=== PATIENT | female | born 1985 | race Caucasian/White ===

== ENCOUNTER → 2017-01-23 | Outpatient (CLI) | payer BC | END | disposition home or self-care (01) | LOC: MW.CHOBGYN 13:34 | PROVIDERS: ATTEND Nurse Practitioner Women's Health | DX: R39.9 Unspecified symptoms and signs involving the genitourinary system (principal); N94.9 Unspecified condition associated with female genital organs and menstrual cycle | CPT/HCPCS: 81001; 87480; 87510; 87660 ==

== ENCOUNTER 2019-11-04 07:02 | Emergency (ER) | payer BC ==
[2019-11-04] MEDS ORDERED: Ondansetron 4 MG/2 ML SDV IVPUSH ONE (07:29)
[2019-11-04] MEDS ORDERED: Ketorolac 30 MG/ML SDV IVPUSH ONE (07:29)
[2019-11-04] MEDS ORDERED: Sodium Chloride 0.9% 10 ML Syringe FLUSH PRN (07:29)
[2019-11-04] MEDS ORDERED: Sodium Chloride 0.9% 1,000 ML IV ONE ×2 (07:29→09:46)
[2019-11-04] MEDS ORDERED: Sodium Chloride 0.9% 2.5 ML Syringe FLUSH PRN (07:29)
--- NOTE | 2019-11-04 07:36 | EDM.PDOC ---
ED HPI GENERAL MEDICAL PROBLEM - General Chief Complaint: Abdominal Pain Stated Complaint: GALLBLADDER ISSUES Time Seen by Provider: 11/04/19 07:32 Source of Information: Reports: Patient History Limitations: Reports: No Limitations - History of Present Illness INITIAL COMMENTS - FREE TEXT/NARRATIVE: Patient is a 34-year-old female who is complaining of having upper abdominal pain which started around midnight and she currently rates it as 10 out of 10 intensity. Pain does radiate somewhat to her back. She is been vomiting since onset of her pain symptoms. She denies any hematemesis or coffee-ground nature to her emesis. She has had no diarrhea. Patient has no fever or shaking chills. She denies any dysuria or hematuria. Patient has had similar symptoms several times in the past and had been diagnosed with cholelithiasis. She was scheduled with Dr. Shore to have the gallbladder removed but had nobody who could drive her home from the hospital. She denies any previous abdominal surgeries. Patient had a normal menstrual period 1 week ago. She denies any vaginal discharge. She attempted to take Tylenol for pain symptoms but threw this up. 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 Upper Abdomen Pain Score (Numeric/FACES): 9 - Related Data Allergies Allergy/AdvReac Type Severity Reaction Status Date / Time seafood Allergy Hives Uncoded 11/04/19 07:28 Home Meds: Home Meds levonorgestreL [Mirena] 1 device VAG ONETIME 12/08/18 [History] Past Medical History HEENT History: Reports: Other (See Below) Other HEENT History: wears glasses/contacts Cardiovascular History: Reports: None Respiratory History: Reports: None Gastrointestinal History: Reports: Cholelithiasis Genitourinary History: Reports: None 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: 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 History: Reports: None Neurological History: Reports: None Psychiatric History: Reports: None Endocrine/Metabolic History: Reports: None Hematologic History: Reports: None Immunologic History: Reports: None Oncologic (Cancer) History: Reports: None Dermatologic History: Reports: None - Past Surgical History Head Surgeries/Procedures: Reports: None HEENT Surgical History: Reports: Tonsillectomy Cardiovascular Surgical History: Reports: None Respiratory Surgical History: Reports: None GI Surgical History: Reports: None Female Surgical History: Reports: None Endocrine Surgical History: Reports: None Neurological Surgical History: Reports: None 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 Surgical History: Reports: None Oncologic Surgical History: Reports: None Dermatological Surgical History: Reports: None ED ROS GENERAL - Review of Systems Review Of Systems: Comprehensive ROS is negative, except as noted in HPI. ED EXAM, GI/ABD - Physical Exam Exam: See Below Exam Limited By: No Limitations General Appearance: Mild Distress Head: Atraumatic Neck: Normal Inspection, Supple Respiratory/Chest: No Respiratory Distress, Lungs Clear, Normal Breath Sounds Cardiovascular: Regular Rate, Rhythm GI/Abdominal Exam: Normal Bowel Sounds, Soft, No Organomegaly, No Distention, Tender. No: Guarding, Rigid, Rebound Back Exam: Normal Inspection, CVA Tenderness (R). No: CVA Tenderness (L) Extremities: Normal Inspection, Non-Tender Neurological: Alert Psychiatric: Normal Affect Skin Exam: Warm, Dry, Intact Course - Vital Signs Text/Narrative:: Patient's ultrasound shows her to have multiple gallstones without thickening of gallbladder wall or large common duct. Is no fluid around the gallbladder. Her lab work shows a white blood cell count of 13 otherwise unremarkable. Patient is feeling much better with IV fluids and Toradol. She states the pain is currently gone. We will give her a p.o. fluid challenge and I am discharging her home with antiemetics and some pain medicine she will follow-up with a surgeon to have her gallbladder removed. She will return to emergency department symptoms are worse. Patient's been instructed to have a low-fat diet with small meals only. Last Recorded V/S: Last Vital Signs Temp 35.6 C L 11/04/19 07:25 Pulse 61 11/04/19 10:17 Resp 20 11/04/19 07:25 BP 79/39 L 11/04/19 10:17 Pulse Ox 98 11/04/19 09:30 - Orders/Labs/Meds Orders: Active Orders 24 hr Category Date Time Status HCG QUALITATIVE,URINE [URCHEM] Stat Lab 11/04/19 07:29 Ordered UA W/MICROSCOPIC [URIN] Stat Lab 11/04/19 07:29 Ordered Sodium Chloride 0.9% [Normal Saline] 1,000 ml Med 11/04/19 09:46 Active IV .Bolus Sodium Chloride 0.9% [Saline Flush] Med 11/04/19 07:29 Active 10 ml FLUSH ASDIRECTED PRN Sodium Chloride 0.9% [Saline Flush] Med 11/04/19 07:29 Active 2.5 ml FLUSH ASDIRECTED PRN Saline Lock Insert [OM.PC] Stat Oth 11/04/19 07:29 Ordered Medication Orders Sodium Chloride (Normal Saline) 1,000 mls @ 999 mls/hr IV .Bolus ONE Stop: 11/04/19 10:46 Last Admin: 11/04/19 09:54 Dose: 999 mls/hr Sodium Chloride (Saline Flush) 10 ml FLUSH ASDIRECTED PRN PRN Reason: Keep Vein Open Last Admin: 11/04/19 09:55 Dose: 10 ml Sodium Chloride (Saline Flush) 2.5 ml FLUSH ASDIRECTED PRN PRN Reason: Keep Vein Open Last Admin: 11/04/19 09:55 Dose: 2.5 ml Labs: Laboratory Tests 11/04/19 11/04/19 Range/Units 07:45 07:45 WBC 13.87 H (4.0-11.0) K/uL RBC 4.32 (4.30-5.90) M/uL Hgb 13.5 (12.0-16.0) g/dL Hct 39.4 (36.0-46.0) % MCV 91.2 (80.0-98.0) fL MCH 31.3 (27.0-32.0) pg MCHC 34.3 (31.0-37.0) g/dL RDW Std Deviation 41.1 (28.0-62.0) fl RDW Coeff of Patrice 12 (11.0-15.0) % Plt Count 262 (150-400) K/uL MPV 10.90 (7.40-12.00) fL Neut % (Auto) 88.0 H (48.0-80.0) % Lymph % (Auto) 9.4 L (16.0-40.0) % [place] % (Auto) 2.5 (0.0-15.0) % Eos % (Auto) 0.0 (0.0-7.0) % Baso % (Auto) 0.1 (0.0-1.5) % Neut # (Auto) 12.2 H (1.4-5.7) K/uL Lymph # (Auto) 1.3 (0.6-2.4) K/uL [place] # (Auto) 0.4 (0.0-0.8) K/uL Eos # (Auto) 0.0 (0.0-0.7) K/uL Baso # (Auto) 0.0 (0.0-0.1) K/uL Nucleated RBC % 0.0 /100WBC Nucleated RBCs # 0 K/uL Sodium 142 (136-145) mmol/L Potassium 3.7 (3.5-5.1) mmol/L Chloride 106 (98-107) mmol/L Carbon Dioxide 28.0 (21.0-32.0) mmol/L BUN 9 (7.0-18.0) mg/dL Creatinine 0.8 (0.6-1.0) mg/dL Est Cr Clr Drug Dosing 98.18 mL/min Estimated GFR (MDRD) > 60.0 ml/min Glucose 144 H (74-106) mg/dL Calcium 9.1 (8.5-10.1) mg/dL Total Bilirubin 0.8 (0.2-1.0) mg/dL AST 13 L (15-37) IU/L ALT 27 (14-63) IU/L Alkaline Phosphatase 38 L (46-116) U/L Total Protein 7.5 (6.4-8.2) g/dL Albumin 4.1 (3.4-5.0) g/dL Globulin 3.4 (2.6-4.0) g/dL Albumin/Globulin Ratio 1.2 (0.9-1.6) Lipase 67 L (73-393) U/L Meds: Medications Generic Name Dose Route Start Last Admin Trade Name Freq PRN Reason Stop Dose Admin Sodium Chloride 1,000 mls @ 999 mls/hr 11/04/19 09:46 11/04/19 09:54 Normal Saline IV 11/04/19 10:46 999 mls/hr .Bolus ONE Administration Sodium Chloride 10 ml 11/04/19 07:29 11/04/19 09:55 Saline Flush FLUSH 10 ml ASDIRECTED PRN Administration Keep Vein Open Sodium Chloride 2.5 ml 11/04/19 07:29 11/04/19 09:55 Saline Flush FLUSH 2.5 ml ASDIRECTED PRN Administration Keep Vein Open Discontinued Medications Generic Name Dose Route Start Last Admin Trade Name Norbert PRN Reason Stop Dose Admin Hydromorphone HCl 1 mg 11/04/19 08:30 11/04/19 09:29 Dilaudid IVPUSH 11/04/19 08:31 Not Given ONETIME ONE Sodium Chloride 1,000 mls @ 999 mls/hr 11/04/19 07:29 11/04/19 07:43 Normal Saline IV 11/04/19 08:29 999 mls/hr BOLUS ONE Administration Ketorolac Tromethamine 30 mg 11/04/19 07:29 11/04/19 07:42 Toradol IVPUSH 11/04/19 07:30 30 mg ONETIME ONE Administration Ondansetron HCl 4 mg 11/04/19 07:29 11/04/19 07:43 Zofran IVPUSH 11/04/19 07:30 4 mg ONETIME ONE Administration Departure - Departure Time of Disposition: 10:27 Disposition: Home, Self-Care 01 Condition: Good Clinical Impression: Cholelithiasis, Abdominal pain, Vomiting - Discharge Information Instructions: Cholelithiasis Referrals: Eulogio Patino MD [Primary Care Provider] - Forms: ED Department Discharge Additional Instructions: Follow-up with general surgeon as soon as possible. Return to ER if having fever or chills, vomiting or worse pain. Pain and nausea meds as prescribed. Fat diet as instructed. Care Plan Goals: The following information is given to patients seen in the emergency department who are being discharged to home. This information is to outline your options for follow-up care. We provide all patients seen in our emergency department with a follow-up referral. The need for follow-up, as well as the timing and circumstances, are variable depending upon the specifics of your emergency department visit. If you don't have a primary care physician on staff, we will provide you with a referral. We always advise you to contact your personal physician following an emergency department visit to inform them of the circumstance of the visit and for follow-up with them and/or the need for any referrals to a consulting specialist. The emergency department will also refer you to a specialist when appropriate. This referral assures that you have the opportunity for follow-up care with a specialist. All of these measure are taken in an effort to provide you with optimal care, which includes your follow-up. Under all circumstances we always encourage you to contact your private physician who remains a resource for coordinating your care. When calling for follow-up care, please make the office aware that this follow-up is from your recent emergency room visit. If for any reason you are refused follow-up, please contact the Emergency Department at and asked to speak to the emergency department charge nurse. Sepsis Event Note - Evaluation Sepsis Screening Result: No Definite Risk - Focused Exam Vital Signs: Vital Signs Temp Pulse Resp BP Pulse Ox 11/04/19 10:17 61 79/39 L 11/04/19 09:30 61 91/34 L 98 11/04/19 07:25 35.6 C L 74 20 114/52 L 98 Date Exam was Performed: 11/04/19 Time Exam was Performed: 10:25 - My Orders Last 24 Hours: My Active Orders 11/04/19 07:29 HCG QUALITATIVE,URINE [URCHEM] Stat UA W/MICROSCOPIC [URIN] Stat Sodium Chloride 0.9% [Saline Flush] 10 ml FLUSH ASDIRECTED PRN Sodium Chloride 0.9% [Saline Flush] 2.5 ml FLUSH ASDIRECTED PRN Saline Lock Insert [OM.PC] Stat 11/04/19 09:46 Sodium Chloride 0.9% [Normal Saline] 1,000 ml IV .Bolus - Assessment/Plan Last 24 Hours: My Active Orders 11/04/19 07:29 HCG QUALITATIVE,URINE [URCHEM] Stat UA W/MICROSCOPIC [URIN] Stat Sodium Chloride 0.9% [Saline Flush] 10 ml FLUSH ASDIRECTED PRN Sodium Chloride 0.9% [Saline Flush] 2.5 ml FLUSH ASDIRECTED PRN Saline Lock Insert [OM.PC] Stat 11/04/19 09:46 Sodium Chloride 0.9% [Normal Saline] 1,000 ml IV .Bolus
[2019-11-04 08:20] LABS: BLOOD UREA NITROGEN,BUN 9 mg/dL (7.0-18.0); CHLORIDE,CL 106 mmol/L (98-107); GLUCOSE RANDOM 144 mg/dL (74-106); LIPASE 67 U/L (73-393); POTASSIUM,K 3.7 mmol/L (3.5-5.1); SODIUM,NA 142 mmol/L (136-145)
[2019-11-04] MEDS ORDERED: HYDROmorphone 2 MG/ML Syringe IVPUSH ONE (08:30)
--- NOTE | 2019-11-04 09:21 | US ---
Limited abdominal ultrasound: Multiple real-time images of the upper right abdomen were obtained. Comparison: Prior right upper quadrant abdominal ultrasound of 05/17/13. Multiple gallstones are seen within the gallbladder. Gallstones are also identified on previous exam. No biliary duct dilatation is seen. Gallbladder wall shows no thickening. Liver contains no focal parenchymal abnormality. Visualized portions of the pancreas are normal. Right kidney shows no hydronephrosis or mass. Right kidney length is 10.4 cm. Impression: 1. Multiple gallstones without gallbladder wall thickening or biliary duct dilatation. Gallstones also seen on previous exam. 2. No additional abnormality is identified on right upper quadrant abdominal ultrasound exam. Diagnostic code #3 Study was dictated in [place] Standard Time
== END 2019-11-04 10:45 | disposition home or self-care (01) ==
LOC: MW.ED 07:02
DX: K80.20 Calculus of gallbladder without cholecystitis without obstruction (principal); Z91.013 Allergy to seafood; Z79.899 Other long term (current) drug therapy
CPT/HCPCS: 76705; 80053; 83690; 85025; 96361; 96374; 96375; 99284; J1885; J2405; J7030

== ENCOUNTER 2019-11-16 07:56 | Day surgery (SDC) | payer BC ==
[~2019-11-16 07:56] MED LIST: Lactated Ringers 1,000 ML IV SCH; Sodium Chloride 0.9% 10 ML SDV IV PRN; Sodium Chloride 0.9% 10 ML Syringe FLUSH PRN; Sodium Chloride 0.9% 2.5 ML Syringe FLUSH PRN; ceFAZolin 2 GM in Premix Bag 1 BAG IV ONE
[2019-11-16] MEDS ORDERED: Rocuronium 100 MG/10 ML Syringe ONE (08:02)
[2019-11-16] MEDS ORDERED: Ondansetron 4 MG/2 ML SDV ONE (08:02)
[2019-11-16] MEDS ORDERED: fentaNYL 250 MCG/5 ML SDV ONE (08:02)
[2019-11-16] MEDS ORDERED: Lidocaine 2% 5 ML SDV ONE (08:02)
[2019-11-16] MEDS ORDERED: Propofol 200 MG/20 ML SDV ONE (08:02)
[2019-11-16] MEDS ORDERED: Midazolam 1 MG/ML 2 ML SDV ONE (08:02)
[2019-11-16] MEDS ORDERED: ceFAZolin/Dextrose,Iso-Osmotic 2 GM/50 ML Duplex Bag IV ONE (08:03)
[2019-11-16] MEDS ORDERED: Bupivacaine 0.5% 30 ML SDV ONE (08:15)
[2019-11-16] MEDS ORDERED: fentaNYL 100 MCG/2 ML SDV IVPUSH PRN (08:37)
[2019-11-16] MEDS ORDERED: Naloxone 0.4 MG/ML Syringe IVPUSH PRN (08:37)
[2019-11-16] MEDS ORDERED: EPINEPHrine 1:10,000 1 MG/10 ML Syringe IVPUSH PRN (08:37)
[2019-11-16] MEDS ORDERED: Atropine 0.1 MG/ML 10 ML Syringe IVPUSH PRN ×2 (08:37)
[2019-11-16] MEDS ORDERED: 50% Dextrose in Water 50 ML Syringe IVPUSH PRN (08:37)
--- NOTE | 2019-11-16 08:39 | PCM.PREANE ---
Preanesthetic Assessment - Anesthesia/Transfusion/Family Hx Anesthesia History: Prior Anesthesia Reaction Type of Anesthesia Reaction: Excessive Nausea/Vomiting (after T&A) Transfusion History: No Prior Transfusion(s) - Review of Systems General: No Symptoms Pulmonary: No Symptoms Cardiovascular: No Symptoms Gastrointestinal: No Symptoms Neurological: No Symptoms Other: Reports: None - Physical Assessment Height: 5 ft 7 in Weight: 82.554 kg ASA Class: 1 Mental Status: Alert & Oriented x3 Dentition: Reports: Normal Dentition ROM/Head Extension: Full Lungs: Clear to Auscultation, Normal Respiratory Effort Cardiovascular: Regular Rate, Regular Rhythm - Lab Values: Laboratory Last Values Urine HCG, Qual NEGATIVE (NEGATIVE) 11/16/19 08:11 - Allergies Allergies/Adverse Reactions: Allergies Allergy/AdvReac Type Severity Reaction Status Date / Time seafood Allergy Hives Uncoded 11/12/19 08:19 - Blood Blood Available: No - Anesthesia Plan Pre-Op Medication Ordered: None - Acknowledgements Anesthesia Type Planned: General Anesthesia Pt an Appropriate Candidate for the Planned Anesthesia: Yes Alternatives and Risks of Anesthesia Discussed w Pt/Guardian: Yes Pt/Guardian Understands and Agrees with Anesthesia Plan: Yes PreAnesthesia Questionnaire HEENT History: Reports: Other (See Below) Other HEENT History: wears glasses/contacts Cardiovascular History: Reports: Other (See Below) Other Cardiovascular History: "low bloodpressure" Respiratory History: Reports: None Gastrointestinal History: Reports: Cholelithiasis Genitourinary History: Reports: None 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: 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 History: Reports: None Neurological History: Reports: None Psychiatric History: Reports: None Endocrine/Metabolic History: Reports: None Hematologic History: Reports: None Immunologic History: Reports: None Oncologic (Cancer) History: Reports: None Dermatologic History: Reports: None - Past Surgical History Head Surgeries/Procedures: Reports: None HEENT Surgical History: Reports: Adenoidectomy, Tonsillectomy Cardiovascular Surgical History: Reports: None Respiratory Surgical History: Reports: None GI Surgical History: Reports: None Female Surgical History: Reports: None Endocrine Surgical History: Reports: None Neurological Surgical History: Reports: None 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 Surgical History: Reports: None Oncologic Surgical History: Reports: None Dermatological Surgical History: Reports: None - SUBSTANCE USE Smoking Status *Q: Never Smoker - HOME MEDS Home Medications: Home Meds Promethazine [Phenergan] 25 mg PO Q6H PRN #10 tab 11/04/19 [Rx] Scopolamine [Transderm-Scop] 1 patch TRDERM ONETIME 11/12/19 [History] - CURRENT (IN HOUSE) MEDS Current Meds: Current Medications Lactated Ringer's (Ringers, Lactated) 1,000 mls @ 125 mls/hr IV ASDIRECTED ADALGISA Sodium Chloride (Saline Flush) 10 ml FLUSH ASDIRECTED PRN PRN Reason: Keep Vein Open Sodium Chloride (Saline Flush) 2.5 ml FLUSH ASDIRECTED PRN PRN Reason: Keep Vein Open Sodium Chloride (Normal Saline) 10 ml IV ASDIRECTED PRN PRN Reason: IV Use Discontinued Medications Bupivacaine HCl (Marcaine 0.5%) Confirm Administered Dose 30 ml .ROUTE .STK-MED ONE Stop: 11/16/19 08:16 Cefazolin Sodium/Dextrose (Ancef) Confirm Administered Dose 2 gm IV .STK-MED ONE Stop: 11/16/19 08:04 Fentanyl (Sublimaze) Confirm Administered Dose 250 mcg .ROUTE .STK-MED ONE Stop: 11/16/19 08:03 Cefazolin Sodium/Dextrose 2 gm (/ Premix) 50 mls @ 100 mls/hr IV ONETIME ONE Stop: 11/15/19 17:08 Lidocaine (Xylocaine-Mpf 2%) Confirm Administered Dose 5 ml .ROUTE .STK-MED ONE Stop: 11/16/19 08:03 Midazolam HCl (Versed 1 Mg/Ml) Confirm Administered Dose 2 mg .ROUTE .STK-MED ONE Stop: 11/16/19 08:03 Ondansetron HCl (Zofran) Confirm Administered Dose 4 mg .ROUTE .STK-MED ONE Stop: 11/16/19 08:03 Propofol (Diprivan 20 Ml) Confirm Administered Dose 200 mg .ROUTE .STK-MED ONE Stop: 11/16/19 08:03 Rocuronium Arnold (Zemuron) Confirm Administered Dose 100 mg .ROUTE .STK-MED ONE Stop: 11/16/19 08:03
[2019-11-16] MEDS ORDERED: Dexamethasone 4 MG/ML 5 ML MDV ONE (08:51)
[2019-11-16] MEDS ORDERED: diphenhydrAMINE 50 MG/ML SDV ONE (08:51)
[2019-11-16] MEDS ORDERED: HYDROmorphone 2 MG/ML Syringe ONE ×2 (09:45→11:36)
[2019-11-16] MEDS ORDERED: Glycopyrrolate 0.2 MG/ML SDV ONE (12:17)
[2019-11-16] MEDS ORDERED: Neostigmine Methylsulfate 1 MG/ML 5 ML Syringe ONE (12:17)
[2019-11-16] MEDS ORDERED: Ketorolac 30 MG/ML SDV ONE (12:18)
--- NOTE | 2019-11-16 12:30 | PCM.OPNOTE ---
- General Post-Op/Procedure Note Date of Surgery/Procedure: 11/16/19 Operative Procedure(s): Lysis of abdominal adhesions, laparoscopic cholecystectomy Findings: Anterior liver capsule adhesions, Dense scar tissue around the proximal half of the gallbladder making for a difficult dissection, multiple large gallstones in gallbladder Pre Op Diagnosis: Symptomatic cholelithiasis Post-Op Diagnosis: Chronic cholecystitis secondary to cholelithiasis, abdominal adhesions Anesthesia Technique: General ET Tube Primary Surgeon: Dori Villarreal Fluid Replacement, Intraop: 3,000 Output, Urine Amount: 215 EBL in mLs: 25 Condition: Good
[2019-11-16] MEDS ORDERED: Haloperidol Lactate 5 MG/ML SDV IM ONE ×2 (13:18→15:04)
[2019-11-16] MEDS ORDERED: Haloperidol Lactate 5 MG/ML SDV ONE (13:22)
--- NOTE | 2019-11-16 15:08 | PCM.POSTAN ---
POST ANESTHESIA ASSESSMENT - MENTAL STATUS Mental Status: Alert, Oriented - VITAL SIGNS Vital Signs: Last Vital Signs Temp 97.5 F 11/16/19 12:29 Pulse 51 L 11/16/19 13:36 Resp 14 11/16/19 13:36 BP 105/55 L 11/16/19 13:36 Pulse Ox 97 11/16/19 13:36 - RESPIRATORY Respiratory Status: Respiratory Rate WNL, Airway Patent, O2 Saturation Stable - CARDIOVASCULAR CV Status: Pulse Rate WNL, Blood Pressure Stable - GASTROINTESTINAL GI Status: No Symptoms - POST OP HYDRATION Hydration Status: Adequate & Stable
--- NOTE | 2019-11-17 12:22 | OR ---
SURGEON: DORI DOBSON MD DATE OF PROCEDURE: 11/16/2019 PREOPERATIVE DIAGNOSIS: Symptomatic cholelithiasis. POSTOPERATIVE DIAGNOSES: Chronic cholecystitis secondary to cholelithiasis, abdominal adhesions. PROCEDURES PERFORMED: Lysis of abdominal adhesions, laparoscopic cholecystectomy. PRIMARY SURGEON: Dori Dobson MD. ANESTHESIA: General endotracheal anesthesia. FLUIDS: 3000 mL of crystalloid. ESTIMATED BLOOD LOSS: 25 mL. URINE OUTPUT: 250 mL. FINDINGS: Anterior liver capsule adhesions, dense scar tissue around the proximal half of the gallbladder making for a difficult dissection, multiple large gallstones in the gallbladder. COMPLICATIONS: None. INDICATIONS: The patient is a 34-year-old female who has had a longstanding history of symptomatic cholelithiasis with multiple gallbladder attacks. She presented to clinic, and we discussed the need for cholecystectomy. I explained that I would attempt it laparoscopically, but should I be unable to perform it safely, I would convert to open. The patient and I discussed the expected perioperative course as well as the risks including bleeding, infection, or damage to surrounding structures including perforation. The patient verbalized understanding and wishes to proceed. PROCEDURE IN DETAIL: The patient was brought into the OR and placed on the OR table in supine position. A time-out was completed verifying the patient's name, age, date of , allergies, and procedure to be performed. General endotracheal anesthesia was induced. The left arm was tucked to the patient's side and a Hsu catheter placed. The abdomen was prepped and draped in usual standard fashion. I anesthetized the infraumbilical fold with 0.5% Marcaine plain. An 11 blade was used to make an incision along the infraumbilical fold. Cautery was used to dissect down to level of subcutaneous fat. I bluntly dissected down to the fascia. The fascia was elevated with Jeremias's and incised sharply with the Palmer scissors. The entry into the abdomen was palpated digitally. Stay sutures were placed on either side of the fascia using 0 Vicryl sutures. A 12 mm Pedro trocar was inserted in the abdomen and the abdomen insufflated. I inserted a 5 mm 30-degree scope and inspected the area underneath my initial trocar placement. No damage to surrounding structures was noted. The patient was placed into reverse Trendelenburg position and airplaned slightly to the left. 5 mm trocars were placed in the following locations under direct visualization; one in the epigastric area, one in the right flank, and one 2 fingerbreadths below the right subcostal margin in the midclavicular line. The gallbladder appeared grossly distended and slightly inflamed. It was full of multiple gallstones. I was able to grasp the top of the gallbladder and elevate it cranially safely. However, the patient was noted to have adhesions along the proximal half of the gallbladder. The patient also had anterior liver capsule adhesions. These were taken down with hook cautery. I turned my attention back to the proximal half of the gallbladder. Given my inability to define my anatomy, I bluntly dissected through these adhesions using a [place], right angle, as well as a Kittner. The medial half of the gallbladder was adhered to the common bile duct. I took great care to meticulously take down these adhesions without damaging the common bile duct and its surrounding structures. In order to better mobilize my gallbladder, I took down the proximal half of the cystic plate in [id number] fashion. This allowed better mobility of my infundibulum, and I was able to continue my dissection along the cystic duct and artery. There was a small area of bleeding along the cystic plate, which was controlled with cautery as well as intraoperative Surgicel. Once I had completely freed away my cystic duct and cystic artery, I carefully inspected my anatomy to ensure that my critical view had been achieved. The patient had a very short cystic duct as well. I triply clipped and ligated the cystic duct and doubly clipped and ligated the cystic artery. My dissection was difficult and took up 2 hours of the case. The remainder of the gallbladder fossa adhesions were taken down using electrocautery. The gallbladder was then placed in an Endo Catch bag and removed through the infraumbilical port site. The 12 mm Pedro trocar was placed back in the abdomen, and I inspected my operative field. I irrigated the right upper quadrant with a normal saline-Ancef solution. This was suctioned out. I closely inspected my operative field and was completely hemostatic. My clips appeared to be in good position and there was no evidence of bile leakage. The 5 mm trocars were then removed under direct visualization. The abdomen allowed to desufflate. The fascia at my infraumbilical port site was closed with interrupted 0 Vicryl sutures. The subcutaneous fat layer was closed with interrupted 3-0 Vicryl sutures. The skin was closed with running 4-0 Monocryl stitch. The 5 mm trocar sites were closed with interrupted 4-0 Monocryl sutures. Steri-Strips and sterile dressings were applied. The patient tolerated the procedure well and was transferred to the PACU in stable condition. CARMEN SIMMONS /[id number]
== END 2019-11-16 16:50 | disposition home or self-care (01) ==
LOC: MW.SDS 07:56
PROVIDERS: ATTEND Surgery
DX: K80.10 Calculus of gallbladder with chronic cholecystitis without obstruction (principal); K82.1 Hydrops of gallbladder; Z83.79 Family history of other diseases of the digestive system; Z91.013 Allergy to seafood
CPT/HCPCS: 47562; 81025; J0690; J1100; J1170; J1200; J1630; J1885; J2001; J2250; J2405; J2704; J3010; J3490; J7120; 88304